=== PATIENT | male | born 1935 | race Caucasian/White ===

== ENCOUNTER 2019-08-04 08:15 | Emergency (ER) | payer MEDICARE, BC ==
[~2019-08-04] VITALS: Ht 167.6 cm; Wt 69.9 kg
--- NOTE | 2019-08-04 08:30 | NUR ---
Patient came in to the er c/o nosebleed since 0500am, BIBRA, on room air, breathing evenly and unlabored. kept comfortable, will continue to monitor accordingly.
[2019-08-04 09:07] VITALS: BP 108/63
--- NOTE | 2019-08-04 09:10 | NUR ---
Patient discharged to home in stable condition. Written and verbal after care instructions given. Patient verbalizes understanding of instruction.
== END 2019-08-04 09:10 | disposition home or self-care (01) ==
LOC: ER 08:18
DX: R04.0 Epistaxis (principal); I48.91 Unspecified atrial fibrillation; I25.2 Old myocardial infarction; Z86.73 Personal history of transient ischemic attack (TIA), and cerebral infarction without residual deficits